=== PATIENT | male | born 1990 ===

== ENCOUNTER 2017-06-21 00:31 | Emergency (ER) | payer OTHER ==
[2017-06-21 00:49] VITALS: BP 156/86; PULSE 97; RESP 18; TEMP 98.5; O2SAT 100
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
== END 2017-06-21 02:06 | disposition home or self-care (01) ==
LOC: H.ER 00:31
DX: M25.571 Pain in right ankle and joints of right foot (principal); V43.62XA Car passenger injured in collision with other type car in traffic accident, initial encounter; Y92.410 Unspecified street and highway as the place of occurrence of the external cause